=== PATIENT | female | born 1945 | race Caucasian/White ===

== ENCOUNTER → 2017-05-23 | Outpatient (CLI) | payer MEDICARE, BC ==
[~2017-05-23] MED LIST: ACETAMINOPHEN PO; ALBUTEROL17 GM INH; ALLEGRA PO; ALLERGY MED; ANEXSIA 7.5/3251 TA1 PO; ANTACID; CLARITIN10 MG PO; GLUCOSAMINE CHON; HYCODAN60 ML 5MG/ PO; KEFLEX500 MG PO; MUCINEX; PRILOSEC PO
--- NOTE | ~2017-05-23 | US6 ---
[facility] A Service of [facility] RADIOLOGY TEXT RESULTS PATIENT: JUAN ORLANDO LOCATION: [facility] : 47 UNIT #: [id number] AGE: [address]: Dwight Sutherland MD SEX: F ORDER DR: [id number] [address] [address] [id number] O MR#: [id number] Acc #: [id number] NAME: JUAN ORLANDO : 1945 SEX: F STUDY DATE/TIME: 05/23/2017 8:03 UNIT: [facility] ROOM: STUDY DESCRIPTION: US Abdominal Limited Attending Physician: Dwight Sutherland M.D. Referring Physician: Dwight Sutherland M.D. Ordering Physician: Dwight Sutherland M.D. Primary Care Physician: Dwight Sutherland M.D. MEDICAL IMAGING REPORT This report is preliminary unless electronic signature is present. EXAM Right quadrant abdominal ultrasound. DATE 05/23/2017 HISTORY Abdominal cramping for 2 weeks, right side abdominal pain. Physician's order states positive Handy sign. COMPARISON AP abdomen 04/26/2017. No previous abdominal ultrasound at this institution for comparison. FINDINGS The pancreas has a normal sonographic appearance. The liver demonstrates slightly coarsened echotexture with diminished acoustic transmission suggesting features of hepatic steatosis. No focal liver lesions are identified. Main portal vein is patent. Intrahepatic IVC demonstrates normal color flow. Liver size is borderline enlarged, 19.4 cm in the sagittal plane. No ascites. Right kidney measures 11.4 cm in length. There is a questionable hypoechoic lesion versus artifactual prominence of the normal cortical parenchyma, measuring 2.8 x 1.8 x 1.8 cm in the right upper renal pole. No shadowing right renal stone or hydronephrosis is seen. The gallbladder is free of shadowing stone, sludge, wall thickening or pericholecystic fluid. Common bile duct caliber is normal, 4 mm. No intrahepatic biliary ductal dilation is seen. IMPRESSION 1. There is questionable hypoechoic lesion within the right upper renal [facility] of [facility] RADIOLOGY TEXT RESULTS PATIENT: JUAN ORLANDO LOCATION: [facility] : [birth year] UNIT #: [id number] AGE: [address]: Dwight Sutherland MD SEX: F ORDER DR: pole measuring up to 2.8 cm in the sagittal plane. It may simply be artifactual representing normal lobulation of the patient's upper pole cortex. Dedicated CT abdomen without and with contrast renal mass protocol would be recommended to that to make this distinction. 2. Borderline hepatic enlargement with features of mild hepatic steatosis. 3. Normal gallbladder. No biliary dilation. 4. Remainder of the examination is within normal limits. Dictated by... Nicole Damian M.D. THIS IS AN ELECTRONICALLY VERIFIED REPORT Nicole Damian M.D. at 05/24/2017 12:08 PM ANGEL/carolina TD: 05/23/2017 11:37 JOB #: [id number] MEDICAL IMAGING REPORT Page 1 of 1
== END | disposition home or self-care (01) ==
LOC: SGUS 07:42
DX: R19.8 Other specified symptoms and signs involving the digestive system and abdomen (principal); R10.9 Unspecified abdominal pain; R16.0 Hepatomegaly, not elsewhere classified
CPT/HCPCS: 76705

== ENCOUNTER → 2017-06-13 | Outpatient (CLI) | payer MEDICARE, BC ==
--- NOTE | ~2017-06-13 | CT2 ---
[facility] A Service of [facility] RADIOLOGY TEXT RESULTS PATIENT: JUAN ORLANDO LOCATION: [facility] : 47 UNIT #: [id number] AGE: [address]: Fabiano Torres MD SEX: F ORDER DR: [id number] [address] [address] [id number] O MR#: [id number] Acc #: [id number] NAME: JUAN ORLANDO. : 1945 SEX: F STUDY DATE/TIME: 06/13/2017 11:36 UNIT: [facility] ROOM: STUDY DESCRIPTION: CT Abd and Pelv W Cont Attending Physician: Fabiano Torres M.D. Referring Physician: Fabiano Torres M.D. Ordering Physician: Dwight Sutherland M.D. Primary Care Physician: Dwight Sutherland M.D. MEDICAL IMAGING REPORT This report is preliminary unless electronic signature is present. EXAM Abdomen and pelvis CT with contrast 06/13/2017 INDICATION Lower abdominal pain. History of small cell carcinoma in 2009. COPD. Ultrasound performed 05/23/2017 demonstrated an abnormality of the right kidney. Bilateral lower abdominal pain 2 months. TECHNIQUE Contrast enhanced CT of the abdomen and pelvis was performed. Correlation is made with right upper quadrant ultrasound 05/23/2017. This CT examination was performed with one or more of the following radiation dose reduction techniques: automatic exposure control, adjustment of mA and/or kV according to patient size, and iterative reconstruction. FINDINGS Included lung bases are clear. No effusion or pericardial effusion. Aorta demonstrates atherosclerotic change. There is no aneurysm or dissection. Spleen, adrenal glands, pancreas and gallbladder are unremarkable. Liver demonstrates mild fatty infiltration. Kidneys demonstrate no hydronephrosis or inflammatory change. There is no cystic or solid renal lesion on either side. Upper pole right kidney appears unremarkable on CT. CT PELVIS: Bladder unremarkable. There is no free fluid or drainable fluid collection in the pelvis. No evidence of bowel obstruction. No focal inflammatory change of the bowel and the appendix is normal. Inguinal canals normal. Osseous structures demonstrate no suspicious bone lesion. IMPRESSION [facility] A Service of [facility] RADIOLOGY TEXT RESULTS PATIENT: JUAN ORLANDO LOCATION: [facility] : 47 UNIT #: [id number] AGE: [address]: Fabiano Torres MD SEX: F ORDER DR: 1. Negative contrast-enhanced CT of the abdomen and pelvis. The kidneys are unremarkable. There is no cystic or solid mass on either side. The appearance on the prior ultrasound is most characteristic of artifact. 2. Mild fatty infiltration of the liver. 3. Normal appendix. Dictated by... Maxi Duvall M.D. THIS IS AN ELECTRONICALLY VERIFIED REPORT Maxi Duvall M.D. at 06/14/2017 6:05 PM LD/deepika TD: 06/14/2017 13:49 JOB #: [id number] MEDICAL IMAGING REPORT Page 1 of 1
[2017-06-13 10:00] LABS: POC - CREATININE 0.98 mg/dL (0.44-1.03)
== END | disposition home or self-care (01) ==
LOC: SCT 06-05 09:40
PROVIDERS: Internal Medicine Gastroenterology
DX: R10.32 Left lower quadrant pain (principal); R10.31 Right lower quadrant pain; K76.0 Fatty (change of) liver, not elsewhere classified
CPT/HCPCS: 74177; 82565; Q9967